=== PATIENT | female | born 1955 | race Caucasian/White ===

== ENCOUNTER → 2016-09-25 | Outpatient (CLI) | payer OTHER | END | disposition home or self-care (01) | LOC: GMAM 10:36 | PROVIDERS: ATTEND Family Medicine | DX: N39.0 Urinary tract infection, site not specified (principal) ==

== ENCOUNTER 2016-11-13 05:50 | Day surgery (SDC) | payer OTHER ==
[2016-11-13] MEDS ORDERED: LACTATED RINGERS 1,000 ML ONE (06:23)
[2016-11-13] MEDS ORDERED: MIDAZOLAM INJ 5 MG/5 ML VIAL IV ONE (07:39)
[2016-11-13] MEDS ORDERED: fentaNYL CITRATE INJ 50 MCG/ML AMP IV ONE (07:39)
[2016-11-13 08:45] VITALS: BP 143/87; TEMP 97.6; O2SAT 98
--- NOTE | 2016-11-13 10:24 | OP ---
DATE OF PROCEDURE: 11/13/16 INDICATION: History of colonic polyps. PREOPERATIVE DIAGNOSIS: 1. History of colonic polyps. POSTOPERATIVE DIAGNOSIS: 1. Colonoscopy completed to the cecum. 2. Occasional scattered diverticula throughout the sigmoid and descending colon. 3. No polyps visualized. ANESTHESIA: Per Liam Herbert CRNA. SURGEON: Ledy Alvarez MD ESTIMATED BLOOD LOSS: None. COMPLICATIONS: None apparent. TECHNIQUE: The patient was brought to the GI lab and laid in the left lateral decubitus position. Digital rectal exam was performed. A small external hemorrhoid was noted. No rectal masses were noted. Tone was normal. The scope was advanced into the rectum and up through to the cecum. The cecum was well visualized. The ileocecal valve was visualized, but not cannulated. The cecum was inspected and found to be normal. The scope was withdrawn through the ascending colon which was also found to be normal and into the transverse colon, slowly through the transverse colon which was found to be normal, and into the descending colon where occasional diverticula were noted, appeared very mild and small. No polyps were noted. The scope was withdrawn into the sigmoid colon. Again, no polyps, occasional diverticula, again, very mild. The scope was withdrawn into the rectum. It was retroflexed. The ilial pectinate line was visualized and appeared normal. The rectum appeared normal with no polyps or masses. The scope was withdrawn. The patient tolerated the procedure well with no obvious complications. She will remain in the Recovery Room until cleared from an anesthesia standpoint. DISPOSITION: The patient will be discharged home. This is a normal colonoscopy other than some mild diverticula. It is recommended that she have a repeat scope in 5 to 10 years. #[id number] [facility]
[2016-11-13] MEDS ORDERED: LIDOCAINE 1% 10 ML VIAL INJ ONE (12:00)
[2016-11-13] MEDS ORDERED: PROPOFOL 200 MG/20 ML VIAL IV ONE (12:00)
== END 2016-11-13 08:40 | disposition home or self-care (01) ==
LOC: AMB 05:50
PROVIDERS: ATTEND Family Medicine
DX: Z12.11 Encounter for screening for malignant neoplasm of colon (principal); Z86.010 Personal history of colon polyps; E78.5 Hyperlipidemia, unspecified; I50.32 Chronic diastolic (congestive) heart failure; I10 Essential (primary) hypertension; Z88.0 Allergy status to penicillin; Z88.8 Allergy status to other drugs, medicaments and biological substances; Z79.82 Long term (current) use of aspirin; Z79.899 Other long term (current) drug therapy; K57.30 Diverticulosis of large intestine without perforation or abscess without bleeding
CPT/HCPCS: 00810; 45378; J2250; J3010; J3490; J7120

== ENCOUNTER 2018-11-10 10:51 | Emergency (ER) | payer OTHER ==
[2018-11-10 11:20] VITALS: TEMP 97.1; O2SAT 98
--- NOTE | 2018-11-10 12:17 | CT ---
Procedure: CT HEAD WITHOUT IV CONTRAST Exam Date: 11/10/2018 11:23 AM CDT Ordering Provider: Randy Alvarez Clinical Indication: abrupt frontal headache Comparison: None Technique: CT images of the head were obtained without contrast administration. Coronal and sagittal reformats were obtained. This exam was performed according to our departmental dose-optimization program which includes automated exposure control, adjustment of the mA and/or kV according to patient size and/or use of iterative reconstruction technique. Findings: There is no acute cortical infarction, hemorrhage, midline shift, mass effect, or hydrocephalus. The calvaria and skull base are unremarkable. Paranasal sinuses and mastoid air cells are well aerated. Impression: 1. No acute intracranial abnormality. Electronically signed by: Rene Boo MD 11/10/2018 12:14 PM CDT
[2018-11-10] MEDS ORDERED: CYCLOBENZAPRINE HCL 10 MG TAB PO ONE (12:36)
[2018-11-10] MEDS ORDERED: predniSONE 20 MG TAB PO ONE (12:36)
--- NOTE | 2018-11-10 12:44 | ED.PDOC ---
History of Present Illness - General Chief Complaint: General Stated Complaint: Pt complains of sharp headache and chest pain Time Seen by Provider: 11/10/18 10:53 Source: patient Exam Limitations: no limitations - History of Present Illness Initial Comments: The patient is a 63-year-old female presenting to the emergency room secondary to abrupt onset headache this morning. No real altered mental status but she did feel nauseated. She was feeling fine prior. She is feeling fine currently. No focal neurological changes. Pain is sharp and lancinating and intermittent up along the temporalis muscle. No significant tenderness to palpation currently. She does have a long-standing history of recurrent headaches. Additionally she reports about 3 weeks of intermittent mild sharp stabbing type mastalgia just under the left nipple. It does not appear to be a deeper sensation like in the chest itself. She does have some mild discomfort palpation of the left breast but no obvious mass or abscess. She does get routine mammograms. She is already set up with her [employer] for evaluation in the near future. No other chest pain. She did have a feeling of shortness of breath when the headache was at its worse this morning. She is not hypoxic. She has significant hypertensive upon arrival here but she is very anxious. Timing/Duration: 1/2 hour - intermittent Severity: severe Improving Factors: nothing Worsening Factors: nothing Associated Symptoms: chest pain - atypical, nausea/vomiting - no vomiting, shortness of breath Allergies/Adverse Reactions: Allergies Penicillin G Allergy (Verified 11/10/18 11:20) Sulfamethoxazole w/Trimethoprim [From Bactrim] Adverse Reaction (Verified 11/10/18 11:20) Home Medications: Ambulatory Orders Aspirin [Aspirin 81] 81 mg PO DAILY 07/28/13 Estradiol Vaginal [Vagifem] 1 each PO .QWEEK 07/28/13 Fish Oil 1,200 mg PO DAILY 07/28/13 Multiple Vitamins W/ Minerals [Multi Complete] 1 each PO DAILY 07/28/13 Atorvastatin Calcium [Lipitor] 10 mg PO BEDTIME 11/10/16 Cyclobenzaprine HCl [Flexeril] 5 mg PO TID PRN #30 tab 11/10/18 predniSONE [Prednisone] 20 mg PO DAILY #5 tab 11/10/18 Review of Systems - Review of Systems Constitutional: States: no symptoms reported EENTM: States: no symptoms reported Respiratory: States: short of breath - brief Cardiology: States: chest pain - atypical to the left subareolar region Gastrointestinal/Abdominal: States: no symptoms reported Genitourinary: States: no symptoms reported Musculoskeletal: States: no symptoms reported Skin: States: no symptoms reported Neurological: States: headache Endocrine: States: no symptoms reported All other Systems: No Change from Baseline Past Medical History (General) - Patient Medical History Hx Stroke: No Hx of COPD: No Hx Congestive Heart Failure: No Hx Hypertension: Yes Hx Diabetes: No Surgical History: Hysterectomy, other - Vaccination History Hx Tetanus, Diphtheria Vaccination: Yes Hx Influenza Vaccination: Yes Hx Pneumococcal Vaccination: Yes Immunizations Up to Date: Yes - Social History Hx Tobacco Use: No Hx Alcohol Use: No Hx Substance Use: No Hx Substance Use Treatment: No Hx Depression: No - Female History Patient is a Female of Child Bearing Age (10 -59 yrs old): No Family Medical History - Family History Mother Family History: No Known Living Status: Unknown Hx Cardiac Disease: Yes Father Living Status: Unknown Hx Family Congestive Heart Failure: Yes Hx Family Cancer: Yes Physical Exam - Physical Exam General Appearance: Alert, Anxious Eye Exam: bilateral normal Ears, Nose, Throat: hearing grossly normal, normal ENT inspection, normal pharynx Neck: full range of motion, supple Respiratory: lungs clear, normal breath sounds, no respiratory distress, no accessory muscle use, other - eft breast does have mild left subareolar tenderness but no obvious infection. No palpable mass. 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 Progress - Progress Progress: 11/10/18 12:47 the patient is a 63-year-old female presenting to the emergency room secondary to abrupt onset headache that is clinically most consistent with a cervical cranial nerve radiculopathy. The patient is going to be placed on prednisone for the next 5 days at 20 mg daily and she'll be written for Flexeril for as needed use. We'll see if this improves her status. She can keep follow- up with her [employer] for the left sided mastalgia. Stretching exercises of her neck may also prove beneficial. ER warnings were given. Follow-up with primary care doctor next week. The patient was moderately hypertensive upon arrival but with relaxation that did improve back to near normal levels. - Results/Orders Results/Orders: 11/10/18 11:23 Telemetry .CONTINUOUS normal sinus rhythm. Chest,2 Views [RAD] Stat no acute pathology. No obvious infiltrate. No pneumothorax. No obvious mass. CT of the head without contrast shows no acute pathology. 11/10/18 11:30 EKG STAT General normal sinus rhythm at 94 bpm. Mild left axis deviation. Slow R-wave progression in anterior leads. No definitive ST segment or T-wave changes consistent with acute ischemia. Normal QT interval. Laboratory Results - last 24 hr 11/10/18 11/10/18 11/10/18 11:52 11:52 11:52 WBC 8.0 RBC 4.97 Hgb 13.4 Hct 40.6 MCV 81.7 MCH 26.9 L MCHC 32.9 L RDW 15.0 H Plt Count 260 MPV 8.6 Absolute Neuts (auto) 5.20 Absolute Lymphs (auto) 2.00 Absolute Monos (auto) 0.70 Absolute Eos (auto) 0.10 Absolute Basos (auto) 0.00 Neutrophils % 64.6 Lymphocytes % 24.6 Monocytes % 8.6 Eosinophils % 1.6 Basophils % 0.6 PT 9.9 INR 0.99 PTT (SP) 25.6 Sodium 142 Potassium 3.9 Chloride 109 Carbon Dioxide 24 Anion Gap 12.9 BUN 15 Creatinine 0.71 BUN/Creatinine Ratio 21.1 H Random Glucose 109 H Serum Osmolality 284.5 Calcium 9.2 Magnesium 2.0 Total Bilirubin 0.4 AST 26 ALT 19 Alkaline Phosphatase 97 Creatine Kinase 87 CK-MB (CK-2) 1.6 CK-MB (CK-2) % Not Reportable Troponin I < 0.02 B-Natriuretic Peptide 36.8 Serum Total Protein 7.0 Albumin 3.7 Globulin 3.3 Albumin/Globulin Ratio 1.1 TSH 1.21 Urine Color Urine Appearance Urine pH Ur Specific [place] Urine Protein Urine Glucose (UA) Urine Ketones Urine Blood Urine Nitrite Urine Bilirubin Urine Urobilinogen Ur Leukocyte Esterase Urine RBC Urine WBC Ur Epithelial Cells Urine Bacteria 11/10/18 11:52 WBC RBC Hgb Hct MCV MCH MCHC RDW Plt Count MPV Absolute Neuts (auto) Absolute Lymphs (auto) Absolute Monos (auto) Absolute Eos (auto) Absolute Basos (auto) Neutrophils % Lymphocytes % Monocytes % Eosinophils % Basophils % PT INR PTT (SP) Sodium Potassium Chloride Carbon Dioxide Anion Gap BUN Creatinine BUN/Creatinine Ratio Random Glucose Serum Osmolality Calcium Magnesium Total Bilirubin AST ALT Alkaline Phosphatase Creatine Kinase CK-MB (CK-2) CK-MB (CK-2) % Troponin I B-Natriuretic Peptide Serum Total Protein Albumin Globulin Albumin/Globulin Ratio TSH Urine Color Yellow Urine Appearance Clear Urine pH 6.0 Ur Specific [place] 1.010 Urine Protein Negative Urine Glucose (UA) Negative Urine Ketones Negative Urine Blood Negative Urine Nitrite Negative Urine Bilirubin Negative Urine Urobilinogen 0.2 Ur Leukocyte Esterase Negative Urine RBC 0 Urine WBC 0 Ur Epithelial Cells 5-10 Urine Bacteria Rare Departure - Departure Clinical Impression: Cervical radiculopathy, Mastalgia in female Disposition: Discharge to Home or Self Care Condition: Fair Departure Forms: ED Discharge - Pt. Copy, Patient Portal Self Enrollment Diet: regular diet Activity: increase activity as tolerated Referrals: Grant Alvarez MD [Primary Care Provider] - 1-2 Weeks Prescriptions: Cyclobenzaprine HCl [Flexeril] 5 mg PO TID PRN #30 tab PRN Reason: Muscle Spasms predniSONE [Prednisone] 20 mg PO DAILY #5 tab Home Medications: Ambulatory Orders Aspirin [Aspirin 81] 81 mg PO DAILY 07/28/13 Estradiol Vaginal [Vagifem] 1 each PO .QWEEK 07/28/13 Fish Oil 1,200 mg PO DAILY 07/28/13 Multiple Vitamins W/ Minerals [Multi Complete] 1 each PO DAILY 07/28/13 Atorvastatin Calcium [Lipitor] 10 mg PO BEDTIME 04/21/17 Cyclobenzaprine HCl [Flexeril] 5 mg PO TID PRN #30 tab 11/10/18 predniSONE [Prednisone] 20 mg PO DAILY #5 tab 11/10/18 Additional Instructions: the patient is a 63-year-old female presenting to the emergency room secondary to abrupt onset headache that is clinically most consistent with a cervical cranial nerve radiculopathy. The patient is going to be placed on prednisone for the next 5 days at 20 mg daily and she'll be written for Flexeril for as needed use. We'll see if this improves her status. She can keep follow-up with her [employer] for the left sided mastalgia. Stretching exercises of her neck may also prove beneficial. ER warnings were given. Follow-up with primary care doctor next week. The patient was moderately hypertensive upon arrival but with relaxation that did improve back to near normal levels.
[2018-11-10 13:24] VITALS: BP 153/87
== END 2018-11-10 13:24 | disposition home or self-care (01) ==
LOC: ER 10:51
DX: M54.12 Radiculopathy, cervical region (principal); N64.4 Mastodynia; R51 Headache; I10 Essential (primary) hypertension; Z79.899 Other long term (current) drug therapy; Z88.0 Allergy status to penicillin; Z88.2 Allergy status to sulfonamides
CPT/HCPCS: 36415; 70450; 71046; 80053; 81001; 82550; 82553; 83735; 83880; 84443; 84484; 85025; 85610; 85730; 93005; J7512

== ENCOUNTER → 2018-11-19 | Outpatient (CLI) | payer OTHER ==
--- NOTE | 2018-11-19 16:33 | MRI ---
EXAM DESCRIPTION: Brain w/o Contrast: MRI. CLINICAL HISTORY: SPEECH DEFECT DUE TO CEREBROVASCULAR DISEASE COMPARISON: MRI scan cervical spine without contrast on the same visit. TECHNIQUE: Multiplanar, high-field MRI unit, multiple diffusion sequences, multiple conventional sequences without contrast. FINDINGS: Normal FLAIR and T2-weighted signal in the periventricular white matter and hidalgo-white matter junctions of the cerebral hemispheres. . No hemorrhage, no cerebral edema, no mass-effect. No diffusion restriction. Normal signal in the bilateral basal ganglia. Normal signal in the brainstem and cerebellar hemispheres. No hemorrhage, no parenchymal edema, no mass-effect.. Normal diffusion restriction. Concordance of the diffusion and non-diffusion sequences with no diffusion restriction. Cortical sulci, ventricles, and other CSF spaces, and the subdural spaces are normally configured for patients age. No effacement or displacement. No midline shift. No extra-axial hemorrhage. Normal flow signal void in the major vessels of the [place], and the venous sinuses. IACs are symmetric bilaterally. Normal signal in the bilateral mastoid air cells. No mass effect in the bilateral cerebellopontine angles. Pituitary gland occupies less than half of the sella. Base of the cerebellar tonsils is at the level of the foramen magnum. Large marge bullosa in the right middle turbinate. Mid septum deviates to the left. Posterior left septal spur. Mucoperiosteal thickening in the ethmoid air cells.. The bony calvarium is intact. IMPRESSION: 1. No hemorrhage, intra-axial extra-axial. No mass effect, midline shift, or abnormal diffusion restriction. 2. No significant acute abnormalities in the brain. 3. Paranasal sinus disease as described above. Electronically signed by: Mode Grijalva MD 11/19/2018 4:31 PM CDT
--- NOTE | 2018-11-19 16:50 | MRI ---
EXAM DESCRIPTION: Cervical Spine: MRI. CLINICAL HISTORY: 63 years Female CERVICAL RADICULOPATHY COMPARISON: MRI scan of the brain without contrast on this visit. TECHNIQUE: Multiplanar, high-field MRI, multiple sequences, non-contrast Cervical spine. FINDINGS: C2-C3: Decreased disc space. Anterior disc space may be fused. These findings may be congenital. AP canal diameter is widened. Neuroforamina are patent. C3-C4: Disc desiccation. Inferior endplates Schmorl's node. Anterior bulge with endplate ridging. Posterior bulge with endplate spurs but not abutting the cord. Right uncinate spurs with right facet arthrosis resulting in right neural foraminal stenosis. Moderate canal narrowing and left neuroforamen patent. C4-C5: Minimal disc desiccation. Bilateral uncinate spurs. Bilateral mild to moderate neural foraminal narrowing. Bilateral facet arthrosis. No significant canal narrowing. C5-C6: Disc desiccation and minimal disc space loss. Tiny posterior midline bulge but not abutting the cord. Borderline right neural foraminal stenosis with moderate left neural foraminal narrowing. Bilateral facet arthrosis more on the right with posterior flavum ligament enlargement. Mild canal narrowing. C6-C7: Disc desiccation with tiny posterior bulge. Minimal right facet arthrosis. Mild left neural foraminal stenosis and moderate right neural foraminal narrowing. Mild canal narrowing. Normal signal in the C7-T1 disc and T1-2 disc with no bulging. Disc spaces preserved. Canal and neural foramina are patent. Facet joints are unremarkable. Spinal alignment unremarkable. No cord compression or cord edema. Atlantoaxial joint minimal hypertrophic arthrosis. Base of the cerebellar tonsils is at the level of the foramen magnum. Paravertebral soft tissues are unremarkable. Vertebral bodies are not compressed at any level. Normal marrow signal in the remaining vertebral bodies and the posterior elements. IMPRESSION: 1. Right uncinate spur and facet arthrosis at C3-C4 resulting in right neural foraminal stenosis. Correlate for right C4 radiculopathy. 2. Left uncinate spur and left facet arthrosis at C6-C7 resulting in left neural foraminal stenosis. Correlate for left C7 radiculopathy. 3. Right uncinate spur at C5-C6 resulting in right neural foraminal stenosis. Correlate for right C6 radiculopathy.. Electronically signed by: Mode rGijalva MD 11/19/2018 4:48 PM CDT
== END ==
LOC: MRI 08:48
PROVIDERS: ATTEND Family Medicine
DX: M54.12 Radiculopathy, cervical region (principal); I69.920 Aphasia following unspecified cerebrovascular disease; M47.892 Other spondylosis, cervical region; M25.78 Osteophyte, vertebrae; M48.02 Spinal stenosis, cervical region; J34.9 Unspecified disorder of nose and nasal sinuses

== ENCOUNTER → 2019-04-23 | Outpatient (CLI) | payer OTHER ==
--- NOTE | 2019-04-24 08:38 | US ---
EXAM DESCRIPTION: Extremity,Lower Nikhil Arteries: Ultrasound. CLINICAL HISTORY: PVD COMPARISON: None. TECHNIQUE: Doppler evaluation of the bilateral lower extremity arterial flow waveforms and velocities. FINDINGS: Arterial waveforms in the right lower extremity are all triphasic.. Arterial waveforms in the left lower extremity are all triphasic.. Comments: Left popliteal velocity significantly greater left than right. Right DPA velocity significantly greater than left. IMPRESSION: Ultrasound Doppler evaluation showing no evidence of significant atherosclerotic occlusive disease bilaterally. Electronically signed by: Mode Grijalva MD 04/24/2019 8:36 AM CDT
== END ==
LOC: US 09:00
PROVIDERS: ATTEND Family Medicine
DX: I73.9 Peripheral vascular disease, unspecified (principal)

== ENCOUNTER 2020-03-01 08:00 | Day surgery (SDC) | payer OTHER ==
[~2020-03-01 08:00] MED LIST: MOXIFLOXACIN HCL (OPHTH) 1 DROP DROPS ONE; PROPARACAINE 0.5% OPHTH SOL 15 ML BTTL ONE; TROP1%/CYCLOPEN 1%/PHENYL 2.5% DROPS ONE
[2020-03-01] MEDS ORDERED: PROPARACAINE 0.5% OPHTH SOL 15 ML BTTL LEFT_EYE ONE ×2 (08:48→09:04)
[2020-03-01] MEDS ORDERED: LIDOCAINE 1% 2 ML VIAL INJ ONE ×2 (08:48→09:04)
[2020-03-01] MEDS ORDERED: MOXIFLOXACIN HCL (OPHTH) 1 DROP DROPS LEFT_EYE ONE ×2 (08:49→09:04)
[2020-03-01] MEDS ORDERED: DEXAMETHASONE 0.1% OPHTH SOL 1 DROP LEFT_EYE ONE ×2 (08:49→09:04)
[2020-03-01] MEDS ORDERED: BRIMONIDINE 0.2% OPHTH DROPS LEFT_EYE ONE ×2 (08:50→09:04)
[2020-03-01] MEDS ORDERED: TOBRAMYCIN SULF 0.3 % OPHT SOL 1 DROP LEFT_EYE ONE ×2 (08:50→09:04)
[2020-03-01] MEDS ORDERED: MIDAZOLAM INJ 2 MG/2 ML VIAL ONE (09:14)
[2020-03-01] MEDS ORDERED: MIDAZOLAM INJ 2 MG/2 ML VIAL IV ONE (11:00)
[2020-03-01] MEDS ORDERED: TROP1%/CYCLOPEN 1%/PHENYL 2.5% DROPS OPHTH ONE (13:10)
== END 2020-03-01 10:20 | disposition home or self-care (01) ==
LOC: AMB 08:00
PROVIDERS: ATTEND Ophthalmology
DX: H25.13 Age-related nuclear cataract, bilateral (principal); E66.9 Obesity, unspecified; Z79.82 Long term (current) use of aspirin; Z79.899 Other long term (current) drug therapy; Z88.0 Allergy status to penicillin; Z88.2 Allergy status to sulfonamides
CPT/HCPCS: 00142; 66984; J2250

== ENCOUNTER → 2020-05-20 | Outpatient (CLI) | payer OTHER | LOC: GMAM 16:29 | PROVIDERS: ATTEND Family Medicine | DX: I10 Essential (primary) hypertension (principal); I50.32 Chronic diastolic (congestive) heart failure ==

== ENCOUNTER → 2020-06-24 | Outpatient (CLI) | payer OTHER ==
--- NOTE | 2020-06-25 16:40 | MAM ---
EXAM DESCRIPTION: 3D Screening BILATERAL : Digital Mammography. CLINICAL HISTORY: 65 years Female screening . No complaints. Remote family history of breast cancer. Menarche age 11. Childbirth age 17. Menopause age 24. HRT five or more years ago.. Lifetime risk of developing breast cancer (Tyrer-Cuzick model)(%): 4.2. COMPARISON: Baseline study at this facility. No prior reports available. TECHNIQUE: Bilateral CC and MLO projection full-field images, digital tomosynthesis mammographic technique. Bilateral digital 2-D full-field MLO images. CAD available for 2-D images. FINDINGS: The breast parenchymal density pattern is: Scattered areas of fibroglandular density. Bilateral solitary microcalcifications. Small mass density in the 12:00 position of the posterior third of the right breast approximately 6 cm from the nipple. No skin thickening or nipple retraction No new focal, stellate mass or density, focal asymmetry , and no suspicious microcalcifications left breast. IMPRESSION: BI-RADS CATEGORY: 0 - INCOMPLETE- Need additional imaging evaluation. RECOMMENDATIONS: FOLLOW-UP: Recall for additional imaging: Bilateral full-field LM imaging 2-D and tomosynthesis.. Directed ultrasound region of interest right breast and optional directed ultrasound left breast. Written communication concerning the IMPRESSION and Follow-up, will be mailed to the patient and referring health care provider. Electronically signed by: Mode Grijalva MD 06/25/2020 4:38 PM [facility] [place]
== END ==
LOC: MAMMO 08:18
PROVIDERS: ATTEND Family Medicine
DX: Z12.31 Encounter for screening mammogram for malignant neoplasm of breast (principal)

== ENCOUNTER → 2020-08-10 | Outpatient (CLI) | payer MEDICARE | LOC: GMAM 10:43 | PROVIDERS: ATTEND Family Medicine | DX: R10.84 Generalized abdominal pain (principal); R07.9 Chest pain, unspecified ==

== ENCOUNTER → 2020-08-11 | Outpatient (CLI) | payer MEDICARE, OTHER ==
--- NOTE | 2020-08-12 07:51 | US ---
EXAM DESCRIPTION: Gall Bladder: ULTRASOUND. CLINICAL HISTORY: ABD PAIN COMPARISON: None. TECHNIQUE: Transabdominal scanning: Barker-scale and Doppler modes. FINDINGS: Gallbladder: normal size, shape, echogenicity; no intraluminal stones or sludge. No fluid around the gallbladder. No wall thickening. 2.1 mm. Non-tender with transducer pressure. Common bile duct: caliber of 3.7 mm within normal limits. Liver: normal echogenicity; contour liver capsule smooth where seen. No fluid around the liver. Intrahepatic biliary ducts normal caliber. Doppler hepatopedal flow portal vein.. Normal caliber portal vein:. 10 mm. Long axis right lobe 16.2 cm. Pancreas: normal size Normal echogenicity. Duct not seen. Aorta: 1.7 cm normal caliber Right kidney: long axis is 11.2 cm; volume 109.1 mL. Minimal cortical thinning with normal cortical echogenicity. No echogenic stones; no hydronephrosis.. IMPRESSION: 1. Gallbladder upper normal limits in size but otherwise unremarkable. No ascites. Pancreas is negative. 2. Gallbladder and common bile duct is unremarkable. Normal age-related appearance of the right kidney. Normal caliber of the aorta. Electronically signed by: Mode Grijalva MD 08/12/2020 7:49 AM [employer]
== END ==
LOC: US 08:05
PROVIDERS: ATTEND Family Medicine
DX: R10.84 Generalized abdominal pain (principal)

== ENCOUNTER → 2020-08-16 | Outpatient (CLI) | payer MEDICARE, OTHER ==
--- NOTE | 2020-08-16 13:26 | CT ---
CT ABDOMEN PELVIS WITHOUT IV CONTRAST HISTORY: 65 years Female generalized abdominal pain COMPARISON: None. TECHNIQUE: Helical tomographic images of the abdomen and pelvis were obtained without the use of intravenous contrast. Coronal and sagittal reformatted images were also provided. This exam was performed according to our departmental dose-optimization program, which includes automated exposure control, adjustment of the mA and/or kV according to patient size and/or use of iterative reconstruction technique. FINDINGS: Included thorax: No acute process detected. Liver: Unremarkable. Gallbladder and biliary ducts: Unremarkable. Pancreas: Unremarkable. Spleen: Unremarkable. Adrenal glands: Unremarkable. Kidneys and ureters: Unremarkable. Urinary bladder: Urinary bladder is decompressed and otherwise not well assessed. Reproductive organs: Uterus is surgically absent or atrophic. No adnexal mass observed. Bowel: Mildly ileal loop in the lower abdomen measuring up to 2.3 cm in diameter demonstrates fecalization of contents, with subsequent transition to relatively decompressed small bowel distally. No focal bowel wall thickening or obstructing mass is identified. Findings may represent low-grade obstruction, possibly secondary to intra-abdominal adhesion. Appendix is not visualized and may be surgically absent. Scattered sigmoid diverticula are present. Lymph nodes: No lymphadenopathy detected. Peritoneal cavity: No free intraperitoneal fluid or free air detected. Vessels: There are scattered atherosclerotic changes noted. Abdominal wall: Unremarkable. Bones: No acute process detected. IMPRESSION: Mildly distended loop of ileum with fecalized contents in the lower abdomen without evidence of obstructing mass or definite stricture. Findings may represent low-grade obstruction secondary to adhesions. Colonic diverticulosis. No evidence of acute diverticulitis Electronically signed by: Kelby Espitia MD 08/16/2020 1:24 PM SECRETARY OFFICE CLERK [facility]
== END ==
LOC: CT 08:43
PROVIDERS: ATTEND Family Medicine
DX: K63.9 Disease of intestine, unspecified (principal); K57.30 Diverticulosis of large intestine without perforation or abscess without bleeding